=== PATIENT | male | born 1935 | race Caucasian/White ===

== ENCOUNTER 2019-10-28 00:08 | Inpatient (IN) | payer MEDICARE, BC ==
[2019-10-28] MEDS ORDERED: SODIUM CHLORIDE 0.9% 1,000 ML IV STA (00:16)
[2019-10-28] MEDS ORDERED: ONDANSETRON 4 MG/2 ML VIAL IVP STA (00:16)
[2019-10-28] MEDS ORDERED: MORPHINE SULFATE 4 MG/ML SYRINGE IVP STA (00:35)
--- NOTE | 2019-10-28 00:35 | XR ---
EXAMINATION TYPE: XR chest 1V portable DATE OF EXAM: 10/28/2019 COMPARISON: NONE HISTORY: Chest pain TECHNIQUE: Single view FINDINGS: There is blunting of the costophrenic angles. There is possible hiatal hernia.. There is no heart failure. There are sternal wires. There are clips at the right pulmonary hilum. There is some linear density at the lung bases. IMPRESSION: Small pleural effusions with basilar atelectasis. No heart failure seen.
--- NOTE | 2019-10-28 00:37 | ED ---
GI Bleed HPI - General Chief complaint: GI Bleed Stated complaint: GI Bleed Time Seen by Provider: 10/28/19 00:14 Source: EMS Mode of arrival: EMS Limitations: no limitations - Related Data Allergies Allergy/AdvReac Type Severity Reaction Status Date / Time No Known Allergies Allergy Verified 10/28/19 00:17 Review of Systems ROS Statement: Those systems with pertinent positive or pertinent negative responses have been documented in the HPI. ROS Other: All systems not noted in ROS Statement are negative. Past Medical History Past Medical History: Asthma, GERD/Reflux, Hypertension Additional Past Medical History / Comment(s): esophageal cancer, History of Any Multi-Drug Resistant Organisms: None Reported Past Surgical History: Coronary Bypass/CABG Additional Past Surgical History / Comment(s): surgery on esophagus. Past Psychological History: No Psychological Hx Reported Smoking Status: Never smoker Past Alcohol Use History: None Reported Past Drug Use History: None Reported General Exam Limitations: no limitations Course Vital Signs 10/28/19 10/28/19 10/28/19 00:10 00:26 01:10 Temperature 98.3 F Pulse Rate 93 84 93 Respiratory 18 20 18 Rate Blood Pressure 126/77 117/75 74/57 O2 Sat by Pulse 98 100 98 Oximetry 10/28/19 10/28/19 10/28/19 02:25 02:30 03:00 Temperature Pulse Rate 92 90 92 Respiratory 16 16 16 Rate Blood Pressure 90/56 83/56 85/55 O2 Sat by Pulse 100 100 99 Oximetry Medical Decision Making - Lab Data Result diagrams: 10/28/19 00:20 10/28/19 00:21 Lab Results 10/28/19 10/28/19 10/28/19 Range/Units 00:15 00:20 00:20 WBC 8.2 (3.8-10.6) k/uL RBC 2.99 L (4.30-5.90) m/uL Hgb 9.7 L (13.0-17.5) gm/dL Hct 30.5 L (39.0-53.0) % MCV 102.0 H (80.0-100.0) fL MCH 32.3 (25.0-35.0) pg MCHC 31.7 (31.0-37.0) g/dL RDW 18.8 H (11.5-15.5) % Plt Count 221 (150-450) k/uL Neutrophils % 80 % Lymphocytes % 7 % Monocytes % 8 % Eosinophils % 4 % Basophils % 0 % Neutrophils # 6.5 (1.3-7.7) k/uL Lymphocytes # 0.6 L (1.0-4.8) k/uL Monocytes # 0.6 (0-1.0) k/uL Eosinophils # 0.3 (0-0.7) k/uL Basophils # 0.0 (0-0.2) k/uL Hypochromasia Moderate Anisocytosis Slight Macrocytosis Moderate PT (9.0-12.0) sec INR (<1.2) APTT (22.0-30.0) sec Sodium (137-145) mmol/L Potassium (3.5-5.1) mmol/L Chloride (98-107) mmol/L Carbon Dioxide (22-30) mmol/L Anion Gap mmol/L BUN (9-20) mg/dL Creatinine (0.66-1.25) mg/dL Est GFR (CKD-EPI)AfAm (>60 ml/min/1.73 sqM) Est GFR (CKD-EPI)NonAf (>60 ml/min/1.73 sqM) Glucose (74-99) mg/dL Plasma Lactic Acid Julio Cesar (0.7-2.0) mmol/L Calcium (8.4-10.2) mg/dL Magnesium (1.6-2.3) mg/dL Total Bilirubin (0.2-1.3) mg/dL AST (17-59) U/L ALT (4-49) U/L Alkaline Phosphatase (38-126) U/L Troponin I (0.000-0.034) ng/mL Total Protein (6.3-8.2) g/dL Albumin (3.5-5.0) g/dL Lipase (23-300) U/L Blood Type O Negative Blood Type Confirm O Negative Blood Type Recheck No Previous Record Bld Type Recheck Status CABO Indicated Antibody Screen NEGATIVE Spec Expiration Date 10/31/2019 - 231910/28/19 10/28/19 10/28/19 Range/Units 00:21 00:21 00:21 WBC (3.8-10.6) k/uL RBC (4.30-5.90) m/uL Hgb (13.0-17.5) gm/dL Hct (39.0-53.0) % MCV (80.0-100.0) fL MCH (25.0-35.0) pg MCHC (31.0-37.0) g/dL RDW (11.5-15.5) % Plt Count (150-450) k/uL Neutrophils % % Lymphocytes % % Monocytes % % Eosinophils % % Basophils % % Neutrophils # (1.3-7.7) k/uL Lymphocytes # (1.0-4.8) k/uL Monocytes # (0-1.0) k/uL Eosinophils # (0-0.7) k/uL Basophils # (0-0.2) k/uL Hypochromasia Anisocytosis Macrocytosis PT 11.0 (9.0-12.0) sec INR 1.1 (<1.2) APTT 24.2 (22.0-30.0) sec Sodium 137 (137-145) mmol/L Potassium 4.5 (3.5-5.1) mmol/L Chloride 110 H (98-107) mmol/L Carbon Dioxide 21 L (22-30) mmol/L Anion Gap 6 mmol/L BUN 25 H (9-20) mg/dL Creatinine 1.32 H (0.66-1.25) mg/dL Est GFR (CKD-EPI)AfAm 57 (>60 ml/min/1.73 sqM) Est GFR (CKD-EPI)NonAf 49 (>60 ml/min/1.73 sqM) Glucose 118 H (74-99) mg/dL Plasma Lactic Acid Julio Cesar 1.4 (0.7-2.0) mmol/L Calcium 8.0 L (8.4-10.2) mg/dL Magnesium 1.6 (1.6-2.3) mg/dL Total Bilirubin 0.4 (0.2-1.3) mg/dL AST 36 (17-59) U/L ALT 21 (4-49) U/L Alkaline Phosphatase 133 H (38-126) U/L Troponin I (0.000-0.034) ng/mL Total Protein 5.6 L (6.3-8.2) g/dL Albumin 2.9 L (3.5-5.0) g/dL Lipase 24 (23-300) U/L Blood Type Blood Type Confirm Blood Type Recheck Bld Type Recheck Status Antibody Screen Spec Expiration Date 10/28/19 Range/Units 00:21 WBC (3.8-10.6) k/uL RBC (4.30-5.90) m/uL Hgb (13.0-17.5) gm/dL Hct (39.0-53.0) % MCV (80.0-100.0) fL MCH (25.0-35.0) pg MCHC (31.0-37.0) g/dL RDW (11.5-15.5) % Plt Count (150-450) k/uL Neutrophils % % Lymphocytes % % Monocytes % % Eosinophils % % Basophils % % Neutrophils # (1.3-7.7) k/uL Lymphocytes # (1.0-4.8) k/uL Monocytes # (0-1.0) k/uL Eosinophils # (0-0.7) k/uL Basophils # (0-0.2) k/uL Hypochromasia Anisocytosis Macrocytosis PT (9.0-12.0) sec INR (<1.2) APTT (22.0-30.0) sec Sodium (137-145) mmol/L Potassium (3.5-5.1) mmol/L Chloride (98-107) mmol/L Carbon Dioxide (22-30) mmol/L Anion Gap mmol/L BUN (9-20) mg/dL Creatinine (0.66-1.25) mg/dL Est GFR (CKD-EPI)AfAm (>60 ml/min/1.73 sqM) Est GFR (CKD-EPI)NonAf (>60 ml/min/1.73 sqM) Glucose (74-99) mg/dL Plasma Lactic Acid Julio Cesar (0.7-2.0) mmol/L Calcium (8.4-10.2) mg/dL Magnesium (1.6-2.3) mg/dL Total Bilirubin (0.2-1.3) mg/dL AST (17-59) U/L ALT (4-49) U/L Alkaline Phosphatase (38-126) U/L Troponin I <0.012 (0.000-0.034) ng/mL Total Protein (6.3-8.2) g/dL Albumin (3.5-5.0) g/dL Lipase (23-300) U/L Blood Type Blood Type Confirm Blood Type Recheck Bld Type Recheck Status Antibody Screen Spec Expiration Date - EKG Data -: EKG Interpreted by Me (EKG shows sinus rhythm 93, MO 120, QRS 72 QTC 440) Disposition Clinical Impression: Upper gastrointestinal hemorrhage, Dehydration, Nausea and vomiting, Anemia, DNR no code (do not resuscitate) Disposition: ADMITTED IP TO THIS [facility] Condition: Fair Is patient prescribed a controlled substance at d/c from ED?: No
[2019-10-28 00:45] LABS: Anisocytosis Slight; Basophils % (A) 0 %; Eosinophils # (A) 0.3 k/uL (0-0.7); Eosinophils % (A) 4 %; HCT 30.5 % (39.0-53.0); HGB 9.7 gm/dL (13.0-17.5); Hypochromasia Moderate; Lymphocytes # (A) 0.6 k/uL (1.0-4.8); Lymphocytes % (A) 7 %; MCH 32.3 pg (25.0-35.0); MCHC 31.7 g/dL (31.0-37.0); Macrocytosis Moderate; Monocytes # (A) 0.6 k/uL (0-1.0); Monocytes % (A) 8 %; Neutrophils # (A) 6.5 k/uL (1.3-7.7); Neutrophils % (A) 80 %; Platelet Count 221 k/uL (150-450); RBC 2.99 m/uL (4.30-5.90); RDW 18.8 % (11.5-15.5); WBC 8.2 k/uL (3.8-10.6)
[2019-10-28 00:55] LABS: INR 1.1 (<1.2); Partial Thromboplastin Time 24.2 sec (22.0-30.0)
[2019-10-28 01:06] LABS: Albumin 2.9 g/dL (3.5-5.0); Magnesium 1.6 mg/dL (1.6-2.3); Potassium 4.5 mmol/L (3.5-5.1); Total Bilirubin 0.4 mg/dL (0.2-1.3); Total Protein 5.6 g/dL (6.3-8.2)
[2019-10-28] MEDS ORDERED: SODIUM CHLORIDE 0.9% 1,000 ML IV ONE ×2 (02:00)
[2019-10-28] MEDS ORDERED: PANTOPRAZOLE 40 MG/10 ML VIAL IVP STA (02:00)
[2019-10-28] MEDS ORDERED: MORPHINE SULFATE 4 MG/ML SYRINGE IVP PRN (02:00)
[2019-10-28] MEDS: ONDANSETRON 4 MG/2 ML VIAL IVP PRN ×2 (06:40→12:25)
--- NOTE | 2019-10-28 07:05 | P.HPIM ---
History of Present Illness H&P Date: 10/28/19 The patient is an 84-year-old male with a PMH of esophageal cancer (remission in 2014 with subsequent relapse this year, status post chemotherapy and radiation, now on palliative care - foregoing any further treatments), aortic stenosis, hypertension, hyperlipidemia, and gout presented to the ED with complaints of sudden onset of hematemesis. The patient reports that he was in his usual state of health until about 9 PM when he began to vomit with 4-5 episodes of bright red bloody vomitus, with the last episode at around 12 AM. He had associated epigastric and substernal discomfort with some shortness of breath, of which the latter two resolved shortly after. He notes continued mild epigastric discomfort, 3 out of 10, nonradiating, with no alleviating or exacerbating features. He notes a previous history of hematemesis with a total of 4 episodes in the last year. He denied diarrhea, palpitations, diaphoresis, dizziness, fever, chills, or cough. In the ED, the patient's BP was borderline with a low of 74/57 with pulse 93, SpO2 98% on 2 L nasal cannula, and afebrile at 98.3. His EKG revealed a sinus rhythm with APCs with no ST/T-wave changes noted. Chest x-ray revealed small pleural effusions with basilar atelectasis. Laboratory evaluation revealed a hemoglobin of 9.7, platelets 221, sodium 137, potassium 4.5, chloride 110, CO2 21, BUN 25, creatinine 1.32, glucose 118, with albumin 2.9. Review of Systems Pertinent positives and negatives as discussed in HPI, a complete review of systems was performed and all other systems are negative. Past Medical History Past Medical History: Asthma, GERD/Reflux, Hypertension Additional Past Medical History / Comment(s): esophageal cancer, History of Any Multi-Drug Resistant Organisms: None Reported Past Surgical History: Coronary Bypass/CABG Additional Past Surgical History / Comment(s): surgery on esophagus. Past Psychological History: No Psychological Hx Reported Smoking Status: Never smoker Past Alcohol Use History: None Reported Past Drug Use History: None Reported Medications and Allergies Home Medications Medication Instructions Recorded Confirmed Type Allopurinol [Zyloprim] 100 mg PO DAILY 10/28/19 10/28/19 History Atorvastatin [Lipitor] 40 mg PO HS 10/28/19 10/28/19 History Enalapril [Vasotec] 10 mg PO DAILY 10/28/19 10/28/19 History Ezetimibe [Zetia] 10 mg PO DAILY 10/28/19 10/28/19 History Fluticasone/Vilanterol [Breo 1 inhalation INHALATION DAILY 10/28/19 10/28/19 History Ellipta 200-25 Mcg INH] Omeprazole 20 mg PO DAILY 10/28/19 10/28/19 History Pantoprazole [Protonix] 40 mg PO BID 10/28/19 10/28/19 History fentaNYL 12MCG/HR PATCH [Duragesic 12 mcg TRANSDERM Q72H 10/28/19 10/28/19 History 12MCG/HR] Allergies Allergy/AdvReac Type Severity Reaction Status Date / Time No Known Allergies Allergy Verified 10/28/19 00:17 Physical Exam Vitals: Vital Signs Temp Pulse Resp BP Pulse Ox 10/28/19 03:00 92 16 85/55 99 10/28/19 02:30 90 16 83/56 100 10/28/19 02:25 92 16 90/56 100 10/28/19 01:10 93 18 74/57 98 10/28/19 00:26 84 20 117/75 100 10/28/19 00:10 98.3 F 93 18 126/77 98 Intake and Output 10/27/19 10/27/19 10/28/19 14:59 22:59 06:59 Other: Weight 63.503 kg General: Elderly male, no distress, appears at stated age, normal weight Derm: no unusual rashes/lesions no unusual ecchymoses, warm, dry Head: atraumatic, normocephalic, symmetric Eyes: EOMI, no lid lag, anicteric sclera, pupils equal round reactive to light ENT: Nose and ears atraumatic, no thrush, no pharyngeal erythema Neck: No thyromegaly, no cervical lymphadenopathy, trachea midline, supple Mouth: no lip lesion, mucus membranes moist Cardiovascular: Systolic murmur appreciated, positive posterior tibial pulse bilateral, no edema, capillary refill less than 2 seconds Lungs: CTA bilateral, no rhonchi, no rales , no accessory muscle use Abdominal: soft, mild epigastric tenderness, no guarding, no appreciable organomegaly, normal bowel sounds Ext: no gross muscle atrophy, muscle strength 5 out of 5 in all 4 extremities grossly, no contractures, Neuro: CN II-XI grossly intact, light touch intact all 4 extremities, finger to nose within normal limits, Psych: Alert, oriented, appropriate affect Results CBC & Chem 7: 10/28/19 00:20 10/28/19 00:21 Labs: Abnormal Lab Results - Last 24 Hours (Table) 10/28/19 10/28/19 Range/Units 00: 00:21 RBC 2.99 L (4.30-5.90) m/uL Hgb 9.7 L (13.0-17.5) gm/dL Hct 30.5 L (39.0-53.0) % MCV 102.0 H (80.0-100.0) fL RDW 18.8 H (11.5-15.5) % Lymphocytes # 0.6 L (1.0-4.8) k/uL Chloride 110 H (98-107) mmol/L Carbon Dioxide 21 L (22-30) mmol/L BUN 25 H (9-20) mg/dL Creatinine 1.32 H (0.66-1.25) mg/dL Glucose 118 H (74-99) mg/dL Calcium 8.0 L (8.4-10.2) mg/dL Alkaline Phosphatase 133 H (38-126) U/L Total Protein 5.6 L (6.3-8.2) g/dL Albumin 2.9 L (3.5-5.0) g/dL Assessment and Plan Plan: Hematemesis in the setting of active esophageal cancer, acute blood loss anemia -Patient is foregoing any further treatment for the malignancy -Continue to monitor CBC every 8 hourly -GI consult -Continue with IV fluids -Anti-emetics -Pain control -Nothing by mouth for now -Patient does not wish for any aggressive measures and reports that he has previously had an endoscopy during a similar episode -Continue Protonix Kidney disease, acute vs chronic -Monitor for now Hypotension, improved from earlier -Patient denying lightheadedness or dizziness -Status post 2.5 liters of IV fluids in the ED -Continue with normal saline infusion for now -Fall precautions Hx of HTN -Hold off on home anti-hypertensives for now HLD, Gout -C/w home meds DVT prophylaxis -IPCDs The patient is admitted with an anticipated greater than 2 midnight stay for evaluation of UGIB CODE STATUS: No Code (patient reports he has previously filled out paperwork outlining his wishes to not go under CPR or be placed on life support in the event of a cardiac arrest. He does not wish to have any form of life support even electively) Discussed with: Patient Anticipated discharge date: 2-[address]: Home A total of 40 minutes was spent on the care of this complex patient more than 50% of the time was spent in counseling and care coordination.
[2019-10-28 07:29] LABS: Anisocytosis Slight; Basophils % (A) 0 %; Eosinophils # (A) 0.1 k/uL (0-0.7); Eosinophils % (A) 3 %; HCT 25.2 % (39.0-53.0); Hypochromasia Marked; Lymphocytes # (A) 0.5 k/uL (1.0-4.8); Lymphocytes % (A) 10 %; MCH 31.2 pg (25.0-35.0); MCHC 30.3 g/dL (31.0-37.0); Macrocytosis Moderate; Mean Platelet Volume 9.8; Monocytes # (A) 0.5 k/uL (0-1.0); Monocytes % (A) 9 %; Neutrophils # (A) 3.9 k/uL (1.3-7.7); Neutrophils % (A) 76 %; Platelet Count 164 k/uL (150-450); RBC 2.45 m/uL (4.30-5.90); RDW 18.9 % (11.5-15.5); WBC 5.1 k/uL (3.8-10.6)
[2019-10-28 07:37] VITALS: RESP 20
[2019-10-28 07:43] LABS: HGB 7.7 gm/dL (13.0-17.5)
[2019-10-28] MEDS ORDERED: SYMBICORT 160-4.5 MCG INHALER INHALATION SCH (08:00)
[2019-10-28] MEDS ORDERED: EZETIMIBE 10 MG TAB PO SCH (09:00)
[2019-10-28] MEDS ORDERED: PANTOPRAZOLE 40 MG/10 ML VIAL IVP SCH ×2 (09:00→21:00)
[2019-10-28 10:55] VITALS: TEMP 97.3
[2019-10-28] MEDS: ALLOPURINOL 100 MG TAB PO SCH ×2 (12:29)
[2019-10-28 12:56] LABS: Anisocytosis Slight; HCT 26.7 % (39.0-53.0); HGB 8.1 gm/dL (13.0-17.5); Hypochromasia Marked; MCH 31.7 pg (25.0-35.0); MCHC 30.4 g/dL (31.0-37.0); MCV 104.1 fL (80.0-100.0); Macrocytosis Marked; Mean Platelet Volume 8.2; Platelet Count 190 k/uL (150-450); RBC 2.56 m/uL (4.30-5.90); RDW 18.8 % (11.5-15.5); WBC 6.4 k/uL (3.8-10.6)
[2019-10-28 15:02] VITALS: BP 96/58; PULSE 96
--- NOTE | 2019-10-28 15:08 | P.DS ---
Providers Date of admission: 10/28/19 02:00 Expected date of discharge: 10/28/19 Attending physician: Deepika De Paz MD Primary care physician: Stated None Hospital Course: Discharge Diagnosis: Upper GI bleed Acute blood loss anemia Esophageal Cancer Hypotension Elevated Cr uable to determine if THAIS or CKD Hx HTN Gout Hospital Course: This 84-year-old male with esophageal cancer, severe aortic stenosis, hypertension, and dyslipidemia who presented to the emergency department secondary to vomiting up blood. In the ER he underwent extensive evaluation. On arrival and hemoglobin 9.7, bun 25, creatinine 1.32 with any known baseline. arrangements were made for admission for upper gi bleed. after long discussion with patient he does not wish to pursue any aggressive form of care such as surgeries, anesthesia, or significant interventions. he wanted to make sure that the bleeding slowed down and that if he needs any bloody with available. he has not had any more vomiting up of blood since coming into the er. he is not having any significant chest pain. We monitored him and on his second blood draw his hemoglobin had dropped to 7.7 however remained stable 6 hours later at 8.1. He was asking to be discharged. He did tolerate a clear liquid diet. Daughter is present at bedside and they both agree that he is limiting his forms of contact with medical care, he does not want anything aggressive done and he is ready to go visit is his point in time. He will follow-up on a full liquid diet for the next 72 hours and then advance as tolerated. He has received IV iron in the past with his oncologist Dr. Mccrary. On Wednesday they will foreword the office his hemoglobin and hematocrit results to see if he should receive another dose of IV iron. Patient was discharged in stable condition. Patient seen and examined at bedside. Feeling better pain improved, no nausea, no vomiting, no chest pain, SOB, light headedness or dizziness. Vital signs reviewed and stable. General: non toxic, no distress, appears at stated age Derm: warm, dry Head: atraumatic, normocephalic, symmetric Eyes: EOMI, no lid lag, anicteric sclera Mouth: no lip lesion, mucus membranes moist Cardiovascular: S1S2 reg, no murmur, positive posterior tibial pulse bilateral, Lungs: CTA bilateral, no rhonchi, no rales , no accessory muscle use Abdominal: soft, nontender to palpation, no guarding, no appreciable organomegaly Ext: no gross muscle atrophy, no edema, no contractures Neuro: CN II-XI grossly intact, no focal neuro deficits Psych: Alert, oriented, appropriate affect A total of 35 minutes of time were spent preparing this complex discharge summary . Patient Condition at Discharge: Fair Plan - Discharge Summary New Discharge Prescriptions: Continue Omeprazole 20 mg PO DAILY Allopurinol [Zyloprim] 100 mg PO DAILY Pantoprazole [Protonix] 40 mg PO BID Ezetimibe [Zetia] 10 mg PO DAILY Atorvastatin [Lipitor] 40 mg PO HS Fluticasone/Vilanterol [Breo Ellipta 200-25 Mcg INH] 1 puff INHALATION RT- DAILY fentaNYL 12MCG/HR PATCH [Duragesic 12MCG/HR] 1 patch TRANSDERM Q72H Tiotropium 18 Mcg/Puff [Spiriva] 1 puff INHALATION RT-DAILY L.acidoph,Paracasei, B.lactis [Probiotic] 1 cap PO DAILY Discontinued Enalapril [Vasotec] 10 mg PO DAILY Discharge Medication List Allopurinol [Zyloprim] 100 mg PO DAILY 10/28/19 [History] Atorvastatin [Lipitor] 40 mg PO HS 10/28/19 [History] Ezetimibe [Zetia] 10 mg PO DAILY 10/28/19 [History] Fluticasone/Vilanterol [Breo Ellipta 200-25 Mcg INH] 1 puff INHALATION RT-DAILY 10/28/19 [History] L.acidoph,Paracasei, B.lactis [Probiotic] 1 cap PO DAILY 10/28/19 [History] Omeprazole 20 mg PO DAILY 10/28/19 [History] Pantoprazole [Protonix] 40 mg PO BID 10/28/19 [History] Tiotropium 18 Mcg/Puff [Spiriva] 1 puff INHALATION RT-DAILY 10/28/19 [History] fentaNYL 12MCG/HR PATCH [Duragesic 12MCG/HR] 1 patch TRANSDERM Q72H 10/28/19 [History] Follow up Appointment(s)/Referral(s): None,Stated [Primary Care Provider] - 1-2 days Patient Instructions/Handouts: Gastrointestinal Bleeding (ED) Activity/Diet/Wound Care/Special Instructions: Activity: as tolerated Diet: Full liquid for 72 hours then advance as tolerated Special Instructions: Hold Enalapril today. Check blood pressure and resume in the morning if top number is greater than [address] Mccrary's office next week your hemoglobin on discharge 8.1 and hematocrit 26.7 please alert them to see if they would like to resume your iron Return if recurrent bleeding for hemoglobin monitoring Discharge Disposition: HOME SELF-CARE
[2019-10-28] MEDS: IPRATROPIUM 0.5 MG/2.5 ML NEBU INHALATION SCH ×2 (16:06→16:08)
[2019-10-28] MEDS ORDERED: ATORVASTATIN 40 MG TAB PO SCH (21:00)
== END 2019-10-28 15:00 | disposition home or self-care (01) | DRG 378 ==
LOC: EC 00:08 → 3SCARD 02:00
PROVIDERS: ADMIT Internal Medicine; ATTEND Internal Medicine
DX: K92.2 Gastrointestinal hemorrhage, unspecified (principal); C15.9 Malignant neoplasm of esophagus, unspecified; D62 Acute posthemorrhagic anemia; J98.11 Atelectasis; E78.5 Hyperlipidemia, unspecified; E86.0 Dehydration; I10 Essential (primary) hypertension; I35.0 Nonrheumatic aortic (valve) stenosis; J45.909 Unspecified asthma, uncomplicated; K92.0 Hematemesis; M10.9 Gout, unspecified; Z51.5 Encounter for palliative care; Z66 Do not resuscitate; Z79.899 Other long term (current) drug therapy; Z92.21 Personal history of antineoplastic chemotherapy; Z92.3 Personal history of irradiation; Z95.1 Presence of aortocoronary bypass graft; Z11.59 Encounter for screening for other viral diseases; I95.9 Hypotension, unspecified; N28.9 Disorder of kidney and ureter, unspecified
CPT/HCPCS: 36415; 71045; 80053; 83605; 83690; 83735; 84484; 85025; 85027; 85610; 85730; 86850; 86900; 86901; 93005; 94640; 96361; 96374; 96375; 96376; 99285